=== PATIENT | female | born 1985 | race Caucasian/White ===

== ENCOUNTER 2016-11-20 11:53 | Emergency (ER) | payer OTHER ==
[~2016-11-20] VITALS: Ht 162.6 cm; Wt 49.9 kg
[2016-11-20 11:53] VITALS: BP_SYST 117
--- NOTE | 2016-11-20 11:53 | NUR ---
PLACED IN ROOM 7
--- NOTE | 2016-11-20 11:55 | NUR ---
pt. to the ER AAOx4 c/o headache 05/24 that started this morning around 07 30, states she has a hx of migraines, states no SOB denies CP, states not nauseous, follows commands clear speech
--- NOTE | 2016-11-20 12:00 | NUR ---
ER at bedside examining patient.
--- NOTE | 2016-11-20 12:23 | NUR ---
pt. to the bathroom ambulatory
[2016-11-20] MEDS ORDERED: ONDANSETRON 4 MG ODT TAB PO ONE (12:30)
[2016-11-20] MEDS ORDERED: HYDROcodone/ACETAMIN 10-325 MG TAB PO ONE (12:30)
[2016-11-20] MEDS ORDERED: SUMAtriptan SUCCINATE 6 MG/0.5 ML VIAL SUBCUT ONE (12:30)
[2016-11-20 13:25] VITALS: BP_SYST 120
--- NOTE | 2016-11-20 13:27 | NUR ---
Patient given written and verbal discharge instructions and verbalizes understanding. ER MD DR. KONG discussed with patient the results and treatment provided. Patient in stable condition. ID arm band removed. Rx of IMITREX AND NORCO given. Patient educated on pain management and to follow up with PMD. Pain Scale 0/10 Opportunity for questions provided and answered.
== END 2016-11-20 13:25 | disposition home or self-care (01) ==
LOC: SED 11:53
DX: G43.909 Migraine, unspecified, not intractable, without status migrainosus (principal); H53.149 Visual discomfort, unspecified
CPT/HCPCS: 81025; 96372; 99283; J3030; Q0162